=== PATIENT | female | born 1955 | race African-American/Black ===

== ENCOUNTER 2016-11-01 17:15 | Emergency (ER) | payer MEDICARE, MEDICAID ==
[2016-11-01 17:16] VITALS: BMI 23.9
[2016-11-01 17:48] LABS: AUTOMATED BASOPHIL 1.4 % (0-2); AUTOMATED LYMPH 41.2 % (17-44); AUTOMATED MONOCYTE 9.4 % (3-10)
[2016-11-01 17:59] LABS: BLOOD UREA NITROGEN 17 MG/DL (7-17); CALCULATED OSMOLALITY 266 MOs/Kg (270-290); CHLORIDE 101 mEq/L (98-107); GLUCOSE 95 mg/dL (70-99); SODIUM LEVEL 137 mEq/L (137-146); TOTAL PROTEIN 8.1 G/DL (6.3-8.2)
[2016-11-01 18:00] LABS: PARTIAL THROMB. TIME 24.5 SEC (22-35); PT-INR 1.1
[2016-11-01 18:18] VITALS: TEMP 97.6
--- NOTE | 2016-11-01 19:31 | EDPRACDOC ---
- General Information Chief Complaint: Chest Pain Stated Complaint: CHEST PAIN Time Seen by Provider: 11/01/16 18:30 Information Source: Patient Mode of Arrival: Car Home Medications: Home Medications Olanzapine [Zyprexa] 15 mg PO HS 11/18/14 Gabapentin 100 mg PO BID 01/07/16 Insulin Glargine [Lantus] 10 units SQ DAILY 01/07/16 Insulin, Regular [Humulin R] 0 units SQ .SSI 01/07/16 Mirtazapine [Remeron] 15 mg PO HS 01/07/16 Probiotic Blend [Neida Q] 1 tab PO BID 01/07/16 Trazodone HCl [Desyrel] 200 mg PO QHS 01/07/16 Prednisone [Deltasone, Orasone] 5 mg PO DAILYWM #100 tablet 01/11/16 Alprazolam [Xanax] 0.25 mg PO Q8H PRN 11/01/16 Ciprofloxacin HCl [Cipro] 500 mg PO BID #20 tab 11/01/16 Omeprazole 20 mg PO DAILY 11/01/16 Tolterodine [Detrol] 2 mg PO BID 11/01/16 Allergies/Adverse Reactions: Allergies Allergy/AdvReac Type Severity Reaction Status Date / Time No Known Allergies Allergy Verified 11/18/14 17:18 - History of Present Illness Onset: 3 days HPI: C/o CP ("pain under left breast"), mild SOB, cough x 3 days. Pain is intermittent, random onset, described as pressure, radiates to left arm, and jaw. Denies hx of cardiac dx, prior exertional CP or SOB, fever, N/V/D, sore throat, change in urine or BM. Med hx = DM, HDL. + fam hx of cardiac dx, - smoker. Chest Pain Location: Reports: Left Chest Pain Radiation: Reports: Jaw, Arm (L) Symptoms Occur: Reports: Gradually, At Rest, With light exertion Cardiac Risk Factors: Reports: Smoker, Family History Cardiac History of: Reports: None Medications within 24 Hours: Reports: None Prehospital Care: Reports: None Pain Came On: Reports: Suddenly Pain Status: No Pain Pain Description: Reports: Sharp, Pressure Pain Severity: None (currently) Pain Worsens With: Reports: Nothing Pain Improves With: Reports: Nothing Associated Signs and Symptoms: Reports: SOB (mild) ED Past Medical History - History Reviewed Yes Nurses notes reviewed and agree except as marked - Patient Medical History Cardiac History: Reports: Hypertension Respiratory History: Reports: COPD, Bronchitis, Cough GI/ History: Reports: Gastroesophageal Reflux Musculoskeletal History: Reports: Osteoarthritis (Chronic neck pain) Psychological History: Reports: Depression, Anxiety. Denies: Substance Use Disorder Systemic History: Reports: Diabetes. Denies: Cancer Surgical History: Reports: Hysterectomy (partial). Denies: Tonsillectomy/ Adnoidectomy - Family Medical History Reports: Hypertension (Mother), Diabetes (Mother), Cancer (brother), Stroke ( sisters), Cardiac Disorders (mother) - Social Medical History Smoking Status: Former smoker Social History: Reports: Benzodiazipine Use. Denies: Substance Use Disorder EDM Review of Systems - Review of Systems ROS Negative Except as Marked: Yes All systems reviewed and were negative except as marked Respiratory: Cough, Shortness of Breath Cardiovascular: Chest Pain - Physical Exam Constitutional: No apparent distress, Alert Oriented to: Time, Person, Place Last recorded Vital Signs: Last Vital Signs Temp 97.6 F 11/01/16 18:17 Pulse 90 11/01/16 18:47 Resp 20 11/01/16 18:47 BP 110/73 11/01/16 18:47 Pulse Ox 93 11/01/16 18:47 Oxygen Pulse Oxygen Saturation 93 O2 Device Room Air Oxygen Flow Rate Fraction of Inspired Oxygen ( FIO2) - HEENT Head: Normal Eye Exam: negative: Conjunctival Injection, Scleral Icterus Oropharynx: negative: Drooling TMJ: Normal Nose: No Symptoms Reported Neck: Normal - Respiratory/Cardiovascular Respiratory: Normal - CTA Cardiovascular: Normal - GI Auscultation: Normal Palpation: Normal Tenderness: Non tender - Musculoskeletal Back: Normal Extremities: Normal - Integumentary Skin: Normal - Neurologic Mood Description: Normal Thought: Coherent Perception: Normal ED Chest Pain Exam - Respiratory/Cardiovascular Respiratory: Normal - CTA Cardiovascular/Chest: Normal Radial Pulse: Normal Pedal Pulse: Normal Edema: negative: 1+, 2+, 3+, 4+, 5, 6 Chest Palpation: Normal - Action ASA given in the ED: No - Results 11/01/16 17:35 11/01/16 17:35 WBC 7.1 xk/uL (3.8-10.8) 11/01/16 17:35 RBC 4.25 xM/uL (4.20-5.40) 11/01/16 17:35 Hgb 11.6 g/dL (12.0-16.0) L 11/01/16 17:35 Hct 35.6 % (36-47) L 11/01/16 17:35 MCV 84 fL (81-99) 11/01/16 17:35 MCH 27.2 pg (27-32) 11/01/16 17:35 MCHC 32.5 g/dl (33-36) L 11/01/16 17:35 RDW 14.6 % (11.5-14.5) H 11/01/16 17:35 Plt Count 426 xk/uL (130-400) H 11/01/16 17:35 MPV 7.0 fL (7.4-10.4) L 11/01/16 17:35 Neut % (Auto) 47.0 % (45-76) 11/01/16 17:35 Lymph % (Auto) 41.2 % (17-44) 11/01/16 17:35 Mower % (Auto) 9.4 % (3-10) 11/01/16 17:35 Eos % (Auto) 1.0 % (0-5) 11/01/16 17:35 Baso % (Auto) 1.4 % (0-2) 11/01/16 17:35 Absolute Neuts (auto) 3.34 xk/uL (1.7-8.2) 11/01/16 17:35 Absolute Lymphs (auto) 2.91 xk/uL (0.65-4.75) 11/01/16 17:35 PT 11.0 SEC (9.2-11.2) 11/01/16 17:35 INR 1.1 11/01/16 17:35 APTT 24.5 SEC (22-35) 11/01/16 17:35 Sodium 137 mEq/L (137-146) 11/01/16 17:35 Potassium 4.2 mEq/L (3.5-5.1) 11/01/16 17:35 Chloride 101 mEq/L (98-107) 11/01/16 17:35 Carbon Dioxide 23 mMOL/L (22-33) 11/01/16 17:35 Anion Gap 17 mEq/L (8-16) H 11/01/16 17:35 BUN 17 MG/DL (7-17) 11/01/16 17:35 Creatinine 1.10 MG/DL (0.52-1.04) H 11/01/16 17:35 Estimated GFR (MDRD) > 60 mL/min (>=60) 11/01/16 17:35 Glucose 95 mg/dL (70-99) 11/01/16 17:35 Calculated Osmolality 266 MOs/Kg (270-290) L 11/01/16 17:35 Calcium 10.0 MG/DL (8.4-10.2) 11/01/16 17:35 Total Bilirubin 0.4 MG/DL (0.2-1.3) 11/01/16 17:35 AST 25 IU/L (14-36) 11/01/16 17:35 ALT 23 IU/L (9-52) 11/01/16 17:35 Alkaline Phosphatase 69 IU/L (55-165) 11/01/16 17:35 Troponin I < 0.01 ng/mL (<.04) 11/01/16 17:35 Bqb-[id number]-Joyijweqifp Pept 29 pg/mL (0-900) 11/01/16 17:35 Total Protein 8.1 G/DL (6.3-8.2) 11/01/16 17:35 Albumin 4.5 G/DL (3.5-5.0) 11/01/16 17:35 Lab Results 11/01/16 11/01/16 11/01/16 17:35 17:35 17:35 WBC 7.1 RBC 4.25 Hgb 11.6 L Hct 35.6 L MCV 84 MCH 27.2 MCHC 32.5 L RDW 14.6 H Plt Count 426 H MPV 7.0 L Neut % (Auto) 47.0 Lymph % (Auto) 41.2 Mower % (Auto) 9.4 Eos % (Auto) 1.0 Baso % (Auto) 1.4 Absolute Neuts (auto) 3.34 Absolute Lymphs (auto) 2.91 PT 11.0 INR 1.1 APTT 24.5 Sodium 137 Potassium 4.2 Chloride 101 Carbon Dioxide 23 Anion Gap 17 H BUN 17 Creatinine 1.10 H Estimated GFR (MDRD) > 60 Glucose 95 Calculated Osmolality 266 L Calcium 10.0 Total Bilirubin 0.4 AST 25 ALT 23 Alkaline Phosphatase 69 Troponin I < 0.01 Eej-B-Hvotgudybvn Pept 29 Total Protein 8.1 Albumin 4.5 Laboratory Results - last 24 hr 11/01/16 11/01/16 11/01/16 17:35 17:35 17:35 WBC 7.1 RBC 4.25 Hgb 11.6 L Hct 35.6 L MCV 84 MCH 27.2 MCHC 32.5 L RDW 14.6 H Plt Count 426 H MPV 7.0 L Neut % (Auto) 47.0 Lymph % (Auto) 41.2 Mower % (Auto) 9.4 Eos % (Auto) 1.0 Baso % (Auto) 1.4 Absolute Neuts (auto) 3.34 Absolute Lymphs (auto) 2.91 PT 11.0 INR 1.1 APTT 24.5 Sodium 137 Potassium 4.2 Chloride 101 Carbon Dioxide 23 Anion Gap 17 H BUN 17 Creatinine 1.10 H Estimated GFR (MDRD) > 60 Glucose 95 Calculated Osmolality 266 L Calcium 10.0 Total Bilirubin 0.4 AST 25 ALT 23 Alkaline Phosphatase 69 Troponin I < 0.01 Esx-A-Gmihwdahsly Pept 29 Total Protein 8.1 Albumin 4.5 Laboratory Results 11/01/16 17:35 11/01/16 17:35 - EKG EKG #1 EKG Time: 17:20 -: Yes EKG interpreted by me Rhythm: NSR ST: Normal - Diagnostic Imaging Chest Image interpreted by: Radiologist EXAM: CHEST 2 VIEW COMPARISON: Radiographs 01/07/2016 FINDINGS: The cardiomediastinal contours are normal. Chain sutures in the right upper lobe with minimal scarring, unchanged. Pulmonary vasculature is normal. No consolidation, pleural effusion, or pneumothorax. No acute osseous abnormalities are seen. IMPRESSION: No acute pulmonary process. Electronically Signed By: Graciela Banks M.D. On: 11/01/2016 20:42 Decision Time to Discharge: 21:40 - Departure Disposition: Home Condition: Stable Final Diagnosis: UTI (urinary tract infection) Qualifiers: Urinary tract infection type: site unspecified Hematuria presence: with hematuria Qualified Code(s): N39.0 - Urinary tract infection, site not specified Instructions: Chest Pain (ED), Urinary Tract Infection in Women (ED), Dysuria Education/Counseling Given To: Patient Education/Counseling Given Regarding: Diagnosis, Treatment, Prognosis, Follow Up Referrals: Toy Turner MD [Primary Care Provider] - One Week Prescriptions: New Ciprofloxacin HCl [Cipro] 500 mg PO BID #20 tab No Action Olanzapine [Zyprexa] 15 mg PO HS Insulin Glargine [Lantus] 10 units SQ DAILY Trazodone HCl [Desyrel] 200 mg PO QHS Gabapentin 100 mg PO BID Mirtazapine [Remeron] 15 mg PO HS Probiotic Blend [Neida Q] 1 tab PO BID Insulin, Regular [Humulin R] 0 units SQ .SSI Prednisone [Deltasone, Orasone] 5 mg PO DAILYWM #100 tablet Tolterodine [Detrol] 2 mg PO BID Omeprazole 20 mg PO DAILY Alprazolam [Xanax] 0.25 mg PO Q8H PRN PRN Reason: Anxiety Additional Instructions: Follow up with primary care. Take Cipro for urinary tract infection. Return to ED for any new or worsening symptoms.
[2016-11-01] MEDS ORDERED: NS 1,000 ML IV ONE (19:33)
--- NOTE | 2016-11-01 20:44 | DIRPT ---
CLINICAL DATA: Shortness of breath, left-sided chest pain and cough for 3 days. EXAM: CHEST 2 VIEW COMPARISON: Radiographs 01/07/2016 FINDINGS: The cardiomediastinal contours are normal. Chain sutures in the right upper lobe with minimal scarring, unchanged. Pulmonary vasculature is normal. No consolidation, pleural effusion, or pneumothorax. No acute osseous abnormalities are seen. IMPRESSION: No acute pulmonary process. Electronically Signed By: Graciela Banks M.D. On: 11/01/2016 20:42
[2016-11-01 21:15] LABS: LEUKOCYTES/URINE 2+ (NEGATIVE); URINE OCCULT BLOOD NEG (NEG/TRACE); WBC/URINE 30-40 (0-5)
[2016-11-01 21:17] LABS: NITRITE/URINE POS (NEGATIVE)
[2016-11-01 22:17] VITALS: BP 106/66; PULSE 98
== END 2016-11-01 22:15 | disposition home or self-care (01) ==
LOC: ED 17:15
DX: N39.0 Urinary tract infection, site not specified (principal); R07.9 Chest pain, unspecified
CPT/HCPCS: 36415; 71020; 80053; 81001; 82962; 83880; 84484; 85025; 85610; 85730; 93005; 96360; 99285